=== PATIENT | female | born 1935 | race Caucasian/White ===

== ENCOUNTER 2020-07-13 10:37 | Observation (INO) | payer MEDICARE ==
[~2020-07-13] VITALS: Ht 165.1 cm; Wt 90.7 kg
[2020-07-13 12:19] LABS: HEMOGLOBIN 13.3 gm/dl (12.3-15.3); RED BLOOD COUNT 4.63 M/UL (4.00-5.10); WHITE BLOOD COUNT 18.2 K/UL (4.5-11.0)
[2020-07-13 13:49] LABS: BUN/CREATININE RATIO 29 (0-10)
[2020-07-13] MEDS ORDERED: NYSTATIN15 GM TOP (15:54)
[2020-07-13] MEDS ORDERED: HYDROCODON-ACE1 EAC4 PO (15:55)
[2020-07-13] MEDS ORDERED: LOSARTAN POTASS50 MG PO (15:55)
[2020-07-13] MEDS ORDERED: NAMENDA10 MG PO (15:56)
[2020-07-13] MEDS ORDERED: FUROSEMIDE20 MG PO (15:56)
[2020-07-13] MEDS ORDERED: LIPITOR TAB 1010 MG PO (15:56)
[2020-07-13] MEDS ORDERED: TOVIAZ8 MG PO (15:57)
[2020-07-13] MEDS ORDERED: PROTONIX40 MG PO (15:57)
[2020-07-13] MEDS ORDERED: MONTELUKAST SOD10 MG PO (15:57)
[2020-07-13] MEDS ORDERED: SYNTHROID50 MCG PO (15:58)
[2020-07-13] MEDS ORDERED: VENTOLIN HFA 66.7 GM INH (16:27)
[2020-07-13] MEDS ORDERED: ASMANEX220 MC1 INH (16:28)
[2020-07-13] MEDS ORDERED: TRUSOPT 2% OP S10 ML OU (16:32)
[2020-07-13] MEDS ORDERED: LATANOPROST2.5 ML OD (16:34)
[2020-07-13] MEDS ORDERED: VOLTAREN100 GM TP (16:35)
[2020-07-13] MEDS ORDERED: PEPCID20 MG PO (16:35)
[2020-07-13] MEDS ORDERED: ZYRTEC10 MG PO (16:36)
[2020-07-13] MEDS ORDERED: FISH OIL 1,0001 EACH PO (16:36)
[2020-07-13] MEDS ORDERED: MULTI-VITAMIN1 EACH PO (16:37)
[2020-07-13] MEDS ORDERED: POTASSIUM GLUCO99 MG PO (16:37)
[2020-07-13] MEDS ORDERED: CALCIUM500 MG PO (16:38)
[2020-07-14 05:30] LABS: HEMOGLOBIN 12.1 gm/dl (12.3-15.3); RED BLOOD COUNT 4.27 M/UL (4.00-5.10)
[2020-07-14 05:31] LABS: WHITE BLOOD COUNT 10.4 K/UL (4.5-11.0)
[2020-07-14 05:39] LABS: BUN/CREATININE RATIO 28 (0-10)
[2020-07-14] MEDS ORDERED: KEFLEX CAP 250250 MG PO (12:01)
== END 2020-07-14 17:10 | disposition home or self-care (01) ==
LOC: ER1 10:37 → MED SURG 4 15:29 → CDU 15:29 → MED SURG 4 15:29
PROVIDERS: Physician Assistant; ADMIT Internal Medicine
DX: M62.82 Rhabdomyolysis (principal); N39.0 Urinary tract infection, site not specified; R53.81 Other malaise; F03.90 Unspecified dementia, unspecified severity, without behavioral disturbance, psychotic disturbance, mood disturbance, and anxiety; I10 Essential (primary) hypertension; J44.9 Chronic obstructive pulmonary disease, unspecified; E11.9 Type 2 diabetes mellitus without complications; Z88.0 Allergy status to penicillin; Z20.822 Contact with and (suspected) exposure to COVID-19
CPT/HCPCS: 36415; 70450; 70486; 71045; 73030; 80053; 81001; 82550; 82553; 83036; 83605; 83735; 83874; 84132; 84439; 84443; 84484; 85025; 87086; 93005; 94664; 94760; 96365; 96372; 97162; 99285; G0378; J0696; J1650; J7030; J7040; U0002